=== PATIENT | male | born 1950 | race Caucasian/White ===

== ENCOUNTER 2020-01-01 19:11 | Inpatient (IN) | payer MEDICARE, OTHER ==
[~2020-01-01] VITALS: Ht 188 cm; Wt 60.8 kg
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
[2020-01-01] MEDS ORDERED: IV NS 0.9% 1,000 ML BAG IV ONE (20:30)
[2020-01-01 20:44] LABS: BASOPHILS # (AUTO) 0.1 /CMM (0.0-0.2); BASOPHILS % (AUTO) 1.1 % (0.0-2.0); EOSINOPHILS % (AUTO) 4.2 % (0.0-6.0); HEMATOCRIT 37 % (39-51); HEMOGLOBIN 12.3 g/dL (13.5-17.5); LYMPHOCYTES # (AUTO) 1.3 /CMM (0.8-4.8); LYMPHOCYTES % (AUTO) 15.8 % (20.0-44.0); MEAN CORPUSCULAR HGB CONC 33 g/dl (31.0-36.0); MEAN CORPUSCULAR VOLUME 96 fL (80-96); MONOCYTES # (AUTO) 0.9 /CMM (0.1-1.30); MONOCYTES % (AUTO) 11.5 % (2.0-12.0); NEUTROPHILS # (AUTO) 5.5 /CMM (1.8-8.9); NEUTROPHILS % (AUTO) 67.4 % (43.0-81.0); PLATELET COUNT (AUTO) 163 /CMM (150-450); RED BLOOD CELL COUNT(AUTO) 3.85 MIL/uL (4.5-6.0); WHITE BLOOD COUNT (AUTO) 8.1 K/uL (4.3-11.0)
[2020-01-01 20:50] LABS: CALCIUM, SERUM 9.2 mg/dL (8.5-10.1); CARBON DIOXIDE 34 mmol/L (21-32); CHLORIDE 101 mmol/L (98-107); CREATININE 0.6 mg/dL (0.6-1.3); GLUCOSE 127 mg/dL (74-106); POTASSIUM 4.4 mmol/L (3.5-5.1); SODIUM SERUM 138 mmol/L (136-145); UREA NITROGEN, BLOOD 21 mg/dL (7-18)
[2020-01-01 20:55] LABS: ALANINE AMINOTRANSFERASE 26 U/L (12-78); ALBUMIN 3.5 g/dL (3.4-5.0); ALKALINE PHOSPHATASE 143 U/L (46-116); ASPARTATE AMINOTRANSFERASE 20 U/L (15-37); BILIRUBIN,DIRECT 0.1 mg/dL (0.0-0.2); BILIRUBIN,TOTAL 0.5 mg/dL (0.2-1.0); LIPASE 197 U/L (73-393); TOTAL PROTEIN, SERUM 7.2 g/dL (6.4-8.2)
--- NOTE | 2020-01-01 21:19 | NUR ---
PT MADE COMFORTABLE WITH BLANKETS AND LOW-LIGHTING
--- NOTE | 2020-01-01 21:30 | NUR ---
Renata wilson in [facility] - 01/01/20 at 2141 by VINICIO PT TRANSFERRED TO [facility]
--- NOTE | 2020-01-01 21:31 | NUR ---
REPORT GIVEN TO MICHELLE VO FOR [id number]
[2020-01-01 21:35] VITALS: BP 107/65
--- NOTE | 2020-01-01 21:35 | NUR ---
MS [employer] CERTIFIED NETWORK PROFESSIONAL NOTE RECEIVED PATIENT VIA GURNEY WITH HOURLY SALES STAFF. TRANSFERRED TO BED. A/OX3. ON OXYGEN 2L/MIN VIA NASAL CANULA. RESPIRATIONS ARE EVEN AND UNLABORED. NO S/S SOB NOTED. DENIES PAIN AT THIS TIME. IN NO APPARENT DISTRESS. IV ACCESS IN RFA#22 PATENT AND SALINE LOCKED. INITIAL PHYSICAL ASSESSMENT COMPLETED AT THIS ITME. SKIN ASSESSMENT COMPLETED, PHOTOS TAKEN AND PLACED IN CHART. GRAVITY PROSPECTING OBSERVER HELPER OBTAINED VITAL SIGNS AND BELONGINGS LIST. ORIENTS PATIENT TO STAFF AND CALL LIGHT. BED IS LOW AND LOCKED, HOB ELEVATED IN SEMI FOWLERS POSITION, SIDE RIALS UP X2, BED ALARM ON. CALL LIGHT WITHIN REACH. WILL CONTINUE TO MONITOR
--- NOTE | 2020-01-01 21:41 | NUR ---
[facility]
[2020-01-01] MEDS ORDERED: ACETAMINOPHEN 325 MG TABLET PO PRN ×2 (22:00→23:30)
[2020-01-01] MEDS ORDERED: Z GUARD REMEDY 2 OZ OINT TP PRN (22:00)
[2020-01-01] MEDS ORDERED: ONDANSETRON HCL/PF 4 MG/2 ML VIAL IVP PRN (22:00)
[2020-01-01] MEDS ORDERED: ZOLPIDEM TARTRATE 5 MG TABLET PO PRN (22:00)
[2020-01-01] MEDS ORDERED: HYDROCODONE/APAP 5/325MG 1 EACH TABLET PO PRN (22:00)
[2020-01-01] MEDS ORDERED: IV NS 0.9% 1,000 ML IV ONE (22:00)
[2020-01-01] MEDS ORDERED: MAG HYDROX/AL HYDROX/SIMETH 30 ML UDC PO PRN (22:00)
[2020-01-01] MEDS ORDERED: MAGNESIUM HYDROXIDE 30 ML UDC PO PRN (22:00)
[2020-01-01] MEDS ORDERED: ACET-73 PO (22:24)
[2020-01-01] MEDS ORDERED: MIRT15TA PO (22:24)
[2020-01-01] MEDS ORDERED: ASCO500T9 PO (22:24)
[2020-01-01] MEDS ORDERED: CARV3.122 PO (22:24)
[2020-01-01] MEDS ORDERED: LISI2.5T2 PO (22:24)
[2020-01-01] MEDS ORDERED: CLOP75TA15 PO (22:24)
[2020-01-01] MEDS ORDERED: ATOR40TA PO (22:24)
[2020-01-01] MEDS ORDERED: INSU100V3 IJ (22:24)
[2020-01-01] MEDS ORDERED: MULT-213 PO (22:24)
[2020-01-01] MEDS ORDERED: FURO40TA5 PO (22:24)
[2020-01-01] MEDS ORDERED: ZINC220C6 PO (22:24)
[2020-01-01] MEDS ORDERED: IPRA0.2S49 NEB (22:24)
[2020-01-01] MEDS ORDERED: ACET325C7 PO ×2 (22:24)
[2020-01-01] MEDS ORDERED: ALBU2.5V13 NEB (22:24)
[2020-01-01] MEDS ORDERED: NITR0.4T48 SL (22:24)
[2020-01-01] MEDS ORDERED: NITROGLYCERIN 0.4 MG/TAB BOTTLE SL PRN (23:00)
[2020-01-01] MEDS ORDERED: DEXTROSE 50%-WATER 50 ML DISP.SYRIN IV PRN (23:30)
[2020-01-02] MEDS: ALBUTEROL FS 2.5 MG/0.5 ML VIAL.NEB NEB SCH ×4 (01:19→19:34)
[2020-01-02] MEDS: IPRATROPIUM NEB FS 0.5 MG/2.5 ML AMPUL.NEB NEB SCH ×4 (01:27→19:34)
[2020-01-02] MEDS ORDERED: IPRATROPIUM NEB FS 0.5 MG/2.5 ML AMPUL.NEB NEB SCH (01:30)
[2020-01-02] MEDS: BLOOD SUGAR DIAGNOSTIC 1 EACH STRIP IN SCH ×4 (06:24→21:54)
--- NOTE | 2020-01-02 06:25 | NUR ---
MS RN NOTE ACCUCHECK FOR 2071 BS 87. PATIENT GIVEN ORANGE JUICE. WILL ENDORSE TO NEXT SHIFT.
[2020-01-02 06:26] LABS: BASOPHILS # (AUTO) 0.1 /CMM (0.0-0.2); EOSINOPHILS % (AUTO) 5.4 % (0.0-6.0); HEMATOCRIT 36 % (39-51); HEMOGLOBIN 11.9 g/dL (13.5-17.5); LYMPHOCYTES # (AUTO) 1.6 /CMM (0.8-4.8); LYMPHOCYTES % (AUTO) 24.7 % (20.0-44.0); MEAN CORPUSCULAR HGB CONC 34 g/dl (31.0-36.0); MEAN CORPUSCULAR VOLUME 95 fL (80-96); MONOCYTES # (AUTO) 0.8 /CMM (0.1-1.30); MONOCYTES % (AUTO) 11.3 % (2.0-12.0); NEUTROPHILS # (AUTO) 3.8 /CMM (1.8-8.9); NEUTROPHILS % (AUTO) 57.6 % (43.0-81.0); PLATELET COUNT (AUTO) 140 /CMM (150-450); RED BLOOD CELL COUNT(AUTO) 3.74 MIL/uL (4.5-6.0); WHITE BLOOD COUNT (AUTO) 6.6 K/uL (4.3-11.0)
--- NOTE | 2020-01-02 06:32 | NUR ---
MS RN CLOSING NOTE PATIENT IN BED. A/OX3. REMAINS ON OXYGEN 2L/MIN VIA NASAL CANULA. RESPIRATIONS ARE EVEN AND UNLABORED. NO SOB NOTED. NO C/O PAIN THROUGHOUT SHIFT. NO DISTRESS NOTED. IV ACCESS MAINTAINED IN RFA#22 RUNNING NS@75ML/HR. BED IS LOW AND LOCKED, HOB ELEVATED IN SEMI FOWLERS POSITION, SIDE RIALS UP X2, BED ALARM ON. CALL LIGHT WITHIN REACH. WILL ENDORSE TO NEXT SHIFT.
[2020-01-02 06:52] LABS: CALCIUM, SERUM 9.1 mg/dL (8.5-10.1); CREATININE 0.4 mg/dL (0.6-1.3); MAGNESIUM 1.8 mg/dL (1.8-2.4); PHOSPHORUS 3.3 mg/dL (2.5-4.9)
[2020-01-02 07:30] VITALS: BP 108/50
[2020-01-02] MEDS ORDERED: INSULIN REGULAR, HUMAN 100 UNIT/ML 3 ML VIAL IJ SCH (07:30)
--- NOTE | 2020-01-02 07:30 | NUR ---
RN OPENING NOTES RECEIVED PATIENT IN BED RESTING. RESPONSIVE TO VERBAL AND TACTILE STIMULI, A/OX3. NOT IN ANY FORM OF DISTRESS. NO SOB. DENIED PAIN AND DISCOMFORT AT THIS TIME IV ACCESS INTACT AND PATENT, NO REDNESS, NO INFILTRATION, IVF INFUSING WELL WITH NS @ 75ML/HR. KEPT PATIENT COMFORTABLE. BED IN LOW/LOCKED POSITION. SIDERAILS UP X2. HOB ELEVATED. CALL LIGHT IN REACH. WILL MONITOR ACCORDINGLY
--- NOTE | 2020-01-02 08:00 | NUR ---
rn notes offered turn and reposition but patient refused. explained risk and benefits but still refused. per patient, "im okay right now".
[2020-01-02] MEDS: ASCORBIC ACID 500 MG TABLET PO SCH ×2 (08:25→17:02)
[2020-01-02] MEDS: CLOPIDOGREL BISULFATE 75 MG TABLET PO SCH (08:25)
[2020-01-02] MEDS: ZINC SULFATE 220 MG CAPSULE PO SCH (08:26)
[2020-01-02] MEDS: FUROSEMIDE 40 MG TABLET PO SCH (08:26)
[2020-01-02] MEDS: MULTIVITAMINS,THERAGRAN 1 UDTAB TABLET PO SCH (08:26)
[2020-01-02] MEDS: LISINOPRIL (5MG) 5 MG TABLET PO SCH (09:00)
[2020-01-02] MEDS: CARVEDILOL 3.125 MG TABLET PO SCH ×2 (09:00→16:31)
[2020-01-02] MEDS ORDERED: ACETAMINOPHEN 325 MG TABLET PO PRN ×2 (09:30)
[2020-01-02] MEDS ORDERED: ACETAMINOPHEN ES 500 MG TABLET PO PRN (09:30)
--- NOTE | 2020-01-02 09:50 | NUR ---
WOUND CARE CONSULT: PT PRESENTS WITH LEFT 2ND TOE DRY ESCHAR, GREAT TOE AMPUTATION SITE, LEFT HEEL DRY INTACT BLISTER/FRAGILE SKIN AND BONY SACRAL AREA, PRESENT ON ADMISSION. RECOMMEND DPM CONSULT. DR ISLAS NOTIFIED OF CONSULT REQUEST. RECOMMENDATIONS MADE FOR SKIN PROTECTION. DISCUSSED WITH NURSING STAFF. WILL SEE PRN. CURRENT MAKENZIE SCORE IS 13. MD IN AGREEMENT WITH PLAN OF CARE. Addendum: 01/02/20 at 0952 by BEATA HASSAN WNDNU Amended: Links added.
--- NOTE | 2020-01-02 12:20 | NUR ---
accucheck done, BS 127. no coverage needed per SS.
--- NOTE | 2020-01-02 14:00 | NUR ---
rn notes offered turn and reposition but patient refused again. explained risk and benefits but still refused. per patient, "im okay".
[2020-01-02 16:00] VITALS: BP 103/56
[2020-01-02] MEDS: ATORVASTATIN 40 MG TABLET PO SCH (17:02)
[2020-01-02] MEDS: MIRTAZAPINE 15 MG TABLET PO SCH (17:04)
[2020-01-02] MEDS: GLUCERNA SHAKE 237 ML CAN PO SCH (18:33)
--- NOTE | 2020-01-02 19:00 | NUR ---
RN medsurg opening notes Received Pt from morning nurse. Pt is sitting in bed eating dinner. Pt is alert and orientedX3. Respiration is normal in 2 L NC. No SOB. No S/S of distress noted. IV sites at RFA# 22 is clean, intact, patent and SL. Turned and repositioned Q 2 HR. Safety precautions is maintained. Bed at low position, brakes locked, side rails upX3, HOB elevated and call light is within reach. Will continue to monitor.
--- NOTE | 2020-01-02 19:00 | NUR ---
RN CLOSING NOTES PATIENT IN STABLE CONDITION. ALL NEEDS ATTENDED AND PROVIDED. ALL DUE MEDICATIONS GIVEN ORDERED. TURNED AND REPOSITIONED PER PROTOCOL. KEPT PATIENT SAFE AND COMFORTABLE. BED IN LOW/LOCKED POSITION, SIDERAILS UPX2, CALL LIGHT IN REACH. ENDORSED ACCORDINGLY.
[2020-01-02 20:00] VITALS: BP 106/55
[2020-01-02] MEDS: INSULIN REGULAR, HUMAN 100 UNIT/ML 3 ML VIAL SQ PRN (21:59)
[2020-01-03] MEDS: ALBUTEROL FS 2.5 MG/0.5 ML VIAL.NEB NEB SCH ×4 (01:09→19:10)
[2020-01-03] MEDS: IPRATROPIUM NEB FS 0.5 MG/2.5 ML AMPUL.NEB NEB SCH ×4 (01:09→19:10)
--- NOTE | 2020-01-03 06:20 | NUR ---
RN medsurg notes Pt's BS 29. Pt is alert and orientedX3, able to talked and make a conversation. No S/S of hypoglycemia noted. Rechecked again BS 123. No coverage given. Pt is in stable condition. Will continue to monitor.
--- NOTE | 2020-01-03 06:39 | NUR ---
RN medsurg notes Pt's blood sugar checked was 123. No coverage given. Will continue to monitor.
[2020-01-03] MEDS: BLOOD SUGAR DIAGNOSTIC 1 EACH STRIP IN SCH ×4 (06:42→21:34)
--- NOTE | 2020-01-03 06:50 | NUR ---
RN medsurg closing notes Pt is resting in bed comfortably. Respiration is normal in 2 L NC. No SOB. No S/S of distress noted. IV sites at RFA#22 is clean, intact, patent and SL. VS is stable. Routine meds were given as ordered. kept Pt clean, dry, and comfortable. Skin care and wound care provided. Turned and repositioned Q 2 HR. All needs met and attended. Safety precautions is maintained. Bed at low position, brakes locked, side rails upX2 and call light is within reach. Will endorse to morning nurse for [place].
[2020-01-03 08:00] VITALS: BP 95/57
--- NOTE | 2020-01-03 08:00 | NUR ---
MS RN OPENING NOTES Received Patient asleep and resting in bed. A/O x 3. VS stable with no acute distress. Breathing even and unlabored on 2LPM via NC with no respiratory distress. Denies pain. No signs and symptoms of pain. 22g PIV on RFA clean, intact, patent and flushing well. Safety precautions in place. Bed locked and set to lowest position with side rails x 2 up. All needs rendered at this time. Call light within reach. Will continue to monitor.
[2020-01-03] MEDS: GLUCERNA SHAKE 237 ML CAN PO SCH ×3 (08:44→17:28)
[2020-01-03] MEDS: CARVEDILOL 3.125 MG TABLET PO SCH ×2 (09:00→17:00)
[2020-01-03] MEDS: LISINOPRIL (5MG) 5 MG TABLET PO SCH (09:00)
[2020-01-03] MEDS: ZINC SULFATE 220 MG CAPSULE PO SCH (09:25)
[2020-01-03] MEDS: FUROSEMIDE 40 MG TABLET PO SCH (09:25)
[2020-01-03] MEDS: CLOPIDOGREL BISULFATE 75 MG TABLET PO SCH (09:25)
[2020-01-03] MEDS: ASCORBIC ACID 500 MG TABLET PO SCH ×2 (09:25→17:28)
[2020-01-03] MEDS: MULTIVITAMINS,THERAGRAN 1 UDTAB TABLET PO SCH (09:25)
[2020-01-03] MEDS: NEOMY SULF/BACITRAC ZN/POLY 15 GM TUBE TP SCH (09:26)
[2020-01-03 16:00] VITALS: BP 95/58
[2020-01-03] MEDS: MIRTAZAPINE 15 MG TABLET PO SCH (17:28)
[2020-01-03] MEDS: ATORVASTATIN 40 MG TABLET PO SCH (17:28)
--- NOTE | 2020-01-03 19:13 | NUR ---
MS RN CLOSING NOTES Patient awake and resting in bed. A/O x 3. VS stable with no acute distress. Breathing even and unlabored on 2LPM via NC with no respiratory distress. Denies pain. No signs and symptoms of pain. 22g PIV on RFA clean, intact, patent and flushing well. Safety precautions in place. Bed locked and set to lowest position with side rails x 2 up. All needs rendered at this time. Call light within reach. Will endorse plan of care to oncoming shift.
--- NOTE | 2020-01-03 19:15 | NUR ---
M/S RN NOTES PATIENT AWAKE IN BED, WATCHING TV. PATIENT IN NO RESPIRATORY DISTRESS, O2 ON 2LPM VIA NASAL CANULA. NO C/O PAIN AT THIS TIME. SKIN WARM TO TOUCH, IV ACCESS SITE INTACT AND PATENT ON THE RFA #22G. PATIENT'S NEEDS ATTENDED, BED ON LOWEST LOCKED POSITION, CALL LIGHT WITHIN REACH, WILL CONTINUE TO MONITOR.
[2020-01-03] MEDS: INSULIN REGULAR, HUMAN 100 UNIT/ML 3 ML VIAL SQ PRN (21:46)
[2020-01-04] MEDS: ALBUTEROL FS 2.5 MG/0.5 ML VIAL.NEB NEB SCH ×4 (00:31→19:30)
[2020-01-04] MEDS: IPRATROPIUM NEB FS 0.5 MG/2.5 ML AMPUL.NEB NEB SCH ×4 (00:31→19:38)
--- NOTE | 2020-01-04 06:46 | NUR ---
M/S RN NOTES PATIENT RESTING IN BED, NO RESPIRATORY DISTRESS. PATIENT ON O2 AT 2LPM VIA NASAL CANULA. PATIENT WITH NO C/O PAIN AT THIS TIME. SKIN WARM TO TOUCH, IV ACCESS SITE INTACT AND PATENT. PATIENT'S NEEDS ATTENDED, BED ON LOWEST LOCKED POSITION, CALL LIGHT WITHIN REACH. WILL ENORSE TO ONCOMING NURSE.
--- NOTE | 2020-01-04 07:40 | NUR ---
MS/RN OPENING NOTE Patient is resting in bed, A/O x3, showing no signs of acute distress, saturating 100% on 2L NC. Patient has no complaints of pain at this time. IV line is clean and intact s/l. Bed is in lowest position, side rails x3 in upright position.Bed is in lowest position, side rails x3 in upright position, call light is within reach and patient is aware of how to call for assistance when needed. Will continue with plan of care.
[2020-01-04 08:00] VITALS: BP 102/55
[2020-01-04] MEDS: BLOOD SUGAR DIAGNOSTIC 1 EACH STRIP IN SCH ×4 (08:37→21:21)
[2020-01-04] MEDS: ASCORBIC ACID 500 MG TABLET PO SCH ×2 (08:37→17:08)
[2020-01-04] MEDS: FUROSEMIDE 40 MG TABLET PO SCH (08:37)
[2020-01-04] MEDS: ZINC SULFATE 220 MG CAPSULE PO SCH (08:37)
[2020-01-04] MEDS: NEOMY SULF/BACITRAC ZN/POLY 15 GM TUBE TP SCH (08:37)
[2020-01-04] MEDS: MULTIVITAMINS,THERAGRAN 1 UDTAB TABLET PO SCH (08:37)
[2020-01-04] MEDS: CLOPIDOGREL BISULFATE 75 MG TABLET PO SCH (08:37)
[2020-01-04] MEDS: CARVEDILOL 3.125 MG TABLET PO SCH ×2 (08:38→17:00)
[2020-01-04] MEDS: GLUCERNA SHAKE 237 ML CAN PO SCH ×3 (08:39→17:07)
[2020-01-04] MEDS: LISINOPRIL (5MG) 5 MG TABLET PO SCH (08:39)
--- NOTE | 2020-01-04 11:24 | NUR ---
MS/TEMPERATURE INSPECTOR NOTE Patient is medically stable for discharge. MD is aware of discharge. Patient is A/O x4, showing no signs of acute distress. Vital signs WNL. IV removed, ID band removed. Neff catheter removed. Patient stated he uses a straight cath at home for himself since he cannot urinate on his own. DC instructions provided and patient verbalized understanding. Patient refused skin assessment, said he is very anxious to go home stating, "I have a lot of things to do I need to go home right away." Patient kept clean and comfortable throughout shift. All patient needs met, all due meds given. All needs and concerns addressed. Patient taken down by wheelchair and picked up by friend in private car, en route to home. Addendum: 01/04/20 at 1129 by CHERYL VALENTINO RN *DISREGARD NOTE; WRONG PATIENT*
[2020-01-04] MEDS: INSULIN REGULAR, HUMAN 100 UNIT/ML 3 ML VIAL SQ PRN (12:11)
--- NOTE | 2020-01-04 12:12 | NUR ---
MS/RN NOTE no insulin coverage per protocol
[2020-01-04 16:57] VITALS: BP 96/58
--- NOTE | 2020-01-04 17:26 | NUR ---
MS/RN NOTE BS 122; no coverage at this time per protocol
[2020-01-04] MEDS ORDERED: IV NS 0.9% 500 ML IV ONE (17:30)
--- NOTE | 2020-01-04 17:30 | NUR ---
MS/RN NOTE Patient manual BP 95/60, MD notified. IV NS 500 ml bolus ordered, repeated order back to MD, will carry out order.
[2020-01-04] MEDS: ATORVASTATIN 40 MG TABLET PO SCH (17:37)
[2020-01-04] MEDS: MIRTAZAPINE 15 MG TABLET PO SCH (17:37)
--- NOTE | 2020-01-04 19:29 | NUR ---
MS/RN CLOSING NOTE Patient is resting in bed, A/O x3, showing no signs of acute distress, saturating 100% on 2L NC. Patient has no complaints of pain at this time. IV line is clean and intact s/l. S/P NS 500ml bolus per MD. All patient needs met, all due meds given. Bed is in lowest position, side rails x3 in upright position. Will endorse to x ray tech.
--- NOTE | 2020-01-04 19:40 | NUR ---
RN OPENING NOTES RECEIVED PATIENT AWAKE IN BED. A/OX3. NO SIGNS OF DISTRESS OR DISCOMFORT. BREATHING EVEN AND UNLABORED. ON 2LPM O2 VIA NC. IV ACCESS IN RFA, PATENT AND INTACT, NO SIGNS OF REDNESS OR INFILTRATION. BED IN LOW LOCKED POSITION WITH SIDE RAILS X2. CALL LIGHT WITHIN REACH. WILL CONTINUE TO MONITOR.
[2020-01-04 20:06] VITALS: BP 96/48
[2020-01-05] MEDS: ALBUTEROL FS 2.5 MG/0.5 ML VIAL.NEB NEB SCH ×3 (01:08→13:08)
[2020-01-05] MEDS: IPRATROPIUM NEB FS 0.5 MG/2.5 ML AMPUL.NEB NEB SCH ×3 (01:08→13:08)
[2020-01-05] MEDS: BLOOD SUGAR DIAGNOSTIC 1 EACH STRIP IN SCH ×2 (06:32→12:15)
--- NOTE | 2020-01-05 07:01 | NUR ---
RN CLOSING NOTES PATIENT RESTING COMFORTABLY IN BED. A/OX2-3. NO SIGNS OF DISTRESS OR DISCOMFORT. BREATHING EVEN AND UNLABORED. ON 2LPM O2 VIA NC. IV ACCESS IN RFA, PATENT AND INTACT, NO SIGNS OF REDNESS OR INFILTRATION. ALL NEEDS MET. NO SIGNIFICANT CHANGES THROUGH THE NIGHT. PATIENT KEPT CLEAN DRY AND COMFORTABLE. BED IN LOW LOCKED POSITION WITH SIDE RAILS X2. CALL LIGHT WITHIN REACH. WILL ENDORSE TO AM SHIFT FOR [place].
--- NOTE | 2020-01-05 08:00 | NUR ---
MS RN OPENING NOTES Received Patient awake and resting in bed. A/O x 3. VS stable with no acute distress. Breathing even and unlabored on 2LPM via NC with no respiratory distress. Denies pain. No signs and symptoms of pain. 22g PIV on RFA clean, intact, patent and flushing well. Safety precautions in place. Bed locked and set to lowest position with side rails x 2 up. All needs rendered at this time. Call light within reach. Will continue to monitor.
[2020-01-05] MEDS: GLUCERNA SHAKE 237 ML CAN PO SCH ×2 (08:51→12:15)
[2020-01-05] MEDS: FUROSEMIDE 40 MG TABLET PO SCH (08:51)
[2020-01-05] MEDS: CARVEDILOL 3.125 MG TABLET PO SCH (08:51)
[2020-01-05] MEDS: ASCORBIC ACID 500 MG TABLET PO SCH (08:53)
[2020-01-05] MEDS: MULTIVITAMINS,THERAGRAN 1 UDTAB TABLET PO SCH (08:53)
[2020-01-05] MEDS: LISINOPRIL (5MG) 5 MG TABLET PO SCH (08:53)
[2020-01-05] MEDS: ZINC SULFATE 220 MG CAPSULE PO SCH (08:53)
[2020-01-05] MEDS: CLOPIDOGREL BISULFATE 75 MG TABLET PO SCH (08:53)
[2020-01-05] MEDS: NEOMY SULF/BACITRAC ZN/POLY 15 GM TUBE TP SCH (08:54)
[2020-01-05 09:11] VITALS: BP 96/54
--- NOTE | 2020-01-05 13:30 | NUR ---
MS MAIL HANDLERS SUPERVISOR NOTES Patient discharged for [facility] at this time. Patient in stable condition. VS stable with no acute distress. Breathing even and unlabored on 2LPM via NC with no respiratory distress. Denies pain. No signs and symptoms of pain. Skin assessment pictures taken and placed in chart. Wound care tx rendered as ordered. Medication reconciliation and discharge orders reviewed and explained to Patient. Patient verbalized understanding. All belongings with Patient. Patient will follow up with PCP in 1 week. Patient picked up by ambulance. Report given to Bautista SALDIVAR.
== END 2020-01-05 13:30 | DRG 682 ==
LOC: ER 19:15 → MEDSG2 21:10
PROVIDERS: ADMIT Family Medicine; ATTEND Internal Medicine
DX: N17.0 Acute kidney failure with tubular necrosis (principal); E43 Unspecified severe protein-calorie malnutrition; I50.42 Chronic combined systolic (congestive) and diastolic (congestive) heart failure; J96.10 Chronic respiratory failure, unspecified whether with hypoxia or hypercapnia; L97.429 Non-pressure chronic ulcer of left heel and midfoot with unspecified severity; R62.7 Adult failure to thrive; I11.0 Hypertensive heart disease with heart failure; E78.5 Hyperlipidemia, unspecified; G20 Parkinson's disease; E11.65 Type 2 diabetes mellitus with hyperglycemia; E86.0 Dehydration; F02.80 Dementia in other diseases classified elsewhere, unspecified severity, without behavioral disturbance, psychotic disturbance, mood disturbance, and anxiety; I25.2 Old myocardial infarction; I25.10 Atherosclerotic heart disease of native coronary artery without angina pectoris; M20.42 Other hammer toe(s) (acquired), left foot; M20.41 Other hammer toe(s) (acquired), right foot; Z99.81 Dependence on supplemental oxygen; R13.10 Dysphagia, unspecified; E11.621 Type 2 diabetes mellitus with foot ulcer; D63.8 Anemia in other chronic diseases classified elsewhere; E11.622 Type 2 diabetes mellitus with other skin ulcer; Z91.041 Radiographic dye allergy status; Z79.4 Long term (current) use of insulin; Z79.51 Long term (current) use of inhaled steroids
CPT/HCPCS: 36415; 71045-TC; 80048-TC; 80061-TC; 80076-TC; 82962-TC; 83690-TC; 83735-TC; 84100-TC; 84484-TC; 85025-TC; 85730-TC; 87040-TC; 87081-TC; 92611-TC; 94799-TC; 97112-TC; 97530-TC; G0378; J1815; J7030; J7040